=== PATIENT | male | born 2005 | race Asian ===

== ENCOUNTER 2025-04-22 18:57 | Emergency (ER) | payer OTHER, SELFPAY ==
[2025-04-22 19:08] VITALS: BP 140/98; PULSE 110; RESP 20; TEMP 36.6; O2SAT 96; BMI 25.7
[2025-04-22 21:07] VITALS: PULSE 81; RESP 22; O2SAT 95
[2025-04-22 21:12] VITALS: BP 126/79; PULSE 72; RESP 21; O2SAT 96
[2025-04-22 21:15] VITALS: PULSE 75; RESP 20; O2SAT 97
[2025-04-22 21:16] VITALS: BP 123/86; PULSE 82; RESP 19; O2SAT 96
[2025-04-22 21:27] VITALS: BP 129/85; PULSE 82; RESP 23; O2SAT 95
[2025-04-22 21:44] LABS: Hematocrit* 46.5 % (37.0-53.0); Hemoglobin* 15.9 gm/dL (13.5-17.5); Immature Granulocytes Abs Auto 0.01 K/uL (0.00-0.30); Immature Granulocytes Pct Auto 0.1 %; Lymphocytes Absolute Auto 2.04 K/uL (0.90-2.90); Mean Corpuscular HGB Conc 34 gm/dL (32-36); Mean Corpuscular Hemoglobin 28 pg (26-34); Mean Corpuscular Volume 83 fL (80-100); RDW Coefficient of Variation % 11.7 % (11.5-15.5); Red Blood Count* 5.61 m/uL (4.30-5.90); White Blood Count* 7.83 K/uL (4.50-11.00)
--- NOTE | 2025-04-22 21:44 | ED.GENADULT ---
HPI - General Adult General Chief complaint: GI Bleed Stated complaint: Nausea, rapid heartbeat Time Seen by Provider: 04/22/25 19:30 History of Present Illness HPI narrative: This 19-year-old male is a student at [employer]. He is in good health but comes in today because of some bright red color on the toilet paper after wiping. He states that he came from a anatomy class and use the bathroom and had a somewhat difficult time passing stool. When he wiped he noticed some reddish color fluid on the toilet paper. He became very anxious then and notice that his heart was going fast with other anxiety symptoms. He states that he did not have any pain any feels much better now. He does not have any family history of colon problems. He is not any any medications or anticoagulants. Related Data Home Medications ?Medication ?Instructions ?Recorded ?Confirmed No Known Home Medications 04/22/25 04/22/25 Allergies Allergy/AdvReac Type Severity Reaction Status Date / Time No Known Drug Allergies Allergy Verified 04/22/25 19:07 Review of Systems Status of ROS: Reports: 10 or more systems reviewed and unremarkable except as noted in History and below Narrative: Constitutional: No fevers, no weight gain or loss. Eyes: No discharge. No vision changes. HENT: No congestion, no sore throat, no ear pain. Cardiovascular: No chest pain, no palpitations. Respiratory: No shortness of breath, no wheezes, no cough. Gastrointestinal: No abdominal pain, no vomiting, no diarrhea. Genitourinary: No dysuria, no hematuria. Musculoskeletal: Normal range of motion. Skin: No rashes, no pruritis. Neurological: No dizziness, weakness, sensory change, speech change. Endo/Heme/Allergies: No bruising or bleeding. No polydipsia. Pysch: no suicidality, no anxiety, no insomnia. All other systems reviewed and are negative. Exam Narrative: Exam Narrative: Constitutional: Well-developed, well-nourished, no acute distress. HEENT: Normocephalic, atraumatic. Neck: Normal range of motion. Nontender. Supple. Heart: Regular. No murmurs. Normal rate. Intact distal pulses. Lungs: Clear to auscultation. No chest discomfort. No wheezes, rhonchi, or rales. Abdomen: Normal bowel sounds. Nontender. No rebound tenderness. Genitalia: Deferred. Back: No midline tenderness. Normal range of motion. Extremities: Normal range of motion. No injury. Skin: Intact. No rash. Warm. No erythema or pallor. Neurologic: No altered sensation. No weakness. Alert and oriented. Psychiatric: No suicidality. No anxiety or depression. No insomnia. Nursing notes and vitals signs are reviewed. Const: Vital Signs, click to edit/add: Vital Signs - 24 hr 04/22/25 19:08 04/22/25 21:07 04/22/25 21:12 Temperature 97.8 F Pulse Rate 81 72 Pulse Rate [Pulse Oximeter] 110 H Respiratory Rate 20 22 21 Blood Pressure 126/79 Blood Pressure [Ri ght Upper Arm] 140/98 H Pulse Oximetry 96 95 96 Oxygen Delivery Me thod Room Air 04/22/25 21:15 04/22/25 21:16 04/22/25 21:27 Temperature Pulse Rate 75 82 82 Pulse Rate [Pulse Oximeter] Respiratory Rate 20 19 23 Blood Pressure 123/86 129/85 Blood Pressure [Ri ght Upper Arm] Pulse Oximetry 97 96 95 Oxygen Delivery Me thod Course Vital Signs Vital signs: Initial Vital Signs Temperature 97.8 F 04/22/25 19:08 Temperature Source Temporal Artery Scan 04/22/25 19:08 Pulse Rate 110 H 04/22/25 19:08 Respiratory Rate 20 04/22/25 19:08 Blood Pressure 140/98 H 04/22/25 19:08 Blood Pressure Mean 112 H 04/22/25 19:08 Pulse Oximetry 96 04/22/25 19:08 Oxygen Delivery Method Room Air 04/22/25 19:08 Vital Signs Temperature 97.8 F 04/22/25 19:08 Pulse Rate 110 H 04/22/25 19:08 Respiratory Rate 20 04/22/25 19:08 Blood Pressure 140/98 H 04/22/25 19:08 Pulse Oximetry 96 04/22/25 19:08 Oxygen Delivery Method Room Air 04/22/25 19:08 Temperature 97.8 F 04/22/25 19:08 Pulse Rate 82 04/22/25 21:27 Respiratory Rate 23 04/22/25 21:27 Blood Pressure 129/85 04/22/25 21:27 Pulse Oximetry 95 04/22/25 21:27 Oxygen Delivery Method Room Air 04/22/25 19:08 Medical Decision Making MDM Narrative Medical decision making narrative: This patient comes in reporting some reddish color on the toilet paper as described above. He had some significant anxiety symptoms after seeing this but these have all now normalized. His initial vital signs showed tachycardia but soon thereafter he had normal heart rate along with other normal vital signs. The patient did have a difficult time passing some stool in likely cause some injury to hemorrhoid veins or anal fissure. He does not have any personal history or family history of colon problems or other problems. I did discuss lab and imaging options with the patient and for now these were declined. I gave reassurance is regarding his vital signs and exam. Most likely this was some injury to tissue as stool was passing out through the rectum. I did recommend a colonoscopy or flexible sigmoidoscopy for further evaluation. Discharge Plan Discharge Clinical Impression: Blood in stool Patient Disposition: Home, Self-Care Condition: Stable Additional Instructions: Continue current plans. Follow up with clinic for flexible sigmoidoscopy or colonoscopy for further evaluation. Return if symptoms are recurrent and worsening. Prescriptions: No Action No Known Home Medications Stand Alone Forms: [id number] Info Instructions
[2025-04-22 21:56] LABS: Slide Review Reflex No
[2025-04-22 22:01] LABS: Albumin* 4.7 g/dL (3.3-5.0); Chloride* 94 mmol/L (96-114); Potassium* 3.9 mmol/L (3.6-5.1); Sodium* 136 mmol/L (135-149)
[2025-04-22 22:02] LABS: Alanine Aminotransferase* 52 U/L (4-50); Alkaline Phosphatase* 78 U/L (40-150); Anion Gap 13 mEq/L (7-15); Aspartate Amino Transferase* 28 U/L (12-35); Bilirubin Total* 0.4 mg/dL (0.1-1.5); Blood Urea Nitrogen* 12 mg/dL (5-24); Carbon Dioxide* 29 mmol/L (20-32); Creatinine* 0.7 mg/dL (0.5-1.5); Est. Creatinine Clearance* 201.19; Estimated Glomerular Filt Rate 135 ml/min; Total Protein* 8.0 g/dL (6.0-8.3)
[2025-04-22 22:03] LABS: Calcium* 9.5 mg/dL (8.4-10.6); Glucose* 103 mg/dL (60-115)
== END 2025-04-22 22:46 | disposition home or self-care (01) ==
PROVIDERS: Student in an Organized Health Care Education/Training Program; Emergency Provider Emergency Medicine Emergency Medical Services
DX: K92.1 Melena (principal); R00.0 Tachycardia, unspecified
CPT/HCPCS: 36415; 80053; 85025; 99283; 99284